=== PATIENT | female | born 1955 | race Caucasian/White ===

== ENCOUNTER → 2024-06-28 12:13 | Outpatient (REF) | payer MEDICARE, BC, SELFPAY | LOC: SDSPAT 12:13 | PROVIDERS: ATTENDING PHYSICIAN Internal Medicine; FAMILY PHYSICIAN Internal Medicine; OTHER PHYSICIAN Internal Medicine Cardiovascular Disease | DX: H34.232 Retinal artery branch occlusion, left eye (principal) | CPT/HCPCS: 93005 ==

== ENCOUNTER 2024-07-14 06:51 | Day surgery (SDC) | payer MEDICARE, BC, SELFPAY | END 2024-07-14 10:35 | disposition home or self-care (01) | LOC: CATH 06:51 | PROVIDERS: ATTENDING PHYSICIAN Internal Medicine; FAMILY PHYSICIAN Internal Medicine | DX: I47.20 Ventricular tachycardia, unspecified (principal); Z09 Encounter for follow-up examination after completed treatment for conditions other than malignant neoplasm; E78.5 Hyperlipidemia, unspecified; I47.10 Supraventricular tachycardia, unspecified; Z86.0100 Personal history of colon polyps, unspecified; M48.061 Spinal stenosis, lumbar region without neurogenic claudication; Z85.828 Personal history of other malignant neoplasm of skin; Z87.891 Personal history of nicotine dependence; Z79.82 Long term (current) use of aspirin; Z79.899 Other long term (current) drug therapy; I08.3 Combined rheumatic disorders of mitral, aortic and tricuspid valves; I70.0 Atherosclerosis of aorta | CPT/HCPCS: 33285; 93312; 93320; 93325; C1764 ==